=== PATIENT | female | born 1985 | race African-American/Black ===

== ENCOUNTER 2016-10-14 17:12 | Emergency (ER) | payer MEDICAID ==
[2016-10-18 18:08] LABS: AEROBE ID Final report (())
== END 2016-10-14 20:27 | disposition home or self-care (01) ==
LOC: D.ER 17:12
PROVIDERS: Emergency Medicine
DX: J02.9 Acute pharyngitis, unspecified (principal); F17.200 Nicotine dependence, unspecified, uncomplicated

== ENCOUNTER 2017-03-03 14:22 | Emergency (ER) | payer MEDICAID ==
[2017-03-03 16:03] LABS: HEMOGLOBIN 15.3 g/dL (12-16); MCH 30.6 pg (26.0-34.0); MCHC 33.3 g/dL (31.0-37.0); MEAN PLATELET VOLUME 10.8 fL (7.4-10.4); PLATELET COUNT 279 10x3/uL (130-400); RDW 14.6 % (11.5-14.5); WBC 21.4 10x3/uL (4.8-10.8)
[2017-03-03 16:14] LABS: INR 1.02 (0.85-1.17); PROTIME 13.3 SECONDS (11.6-15.0)
[2017-03-03 16:20] LABS: ALBUMIN 3.8 g/dL (3.4-5.0); ALKALINE PHOSPHATASE 73 U/L (46-116); ALT (SGPT) 22 U/L (10-68); BILIRUBIN - TOTAL 0.52 mg/dL (0.2-1.3); CALC OSMOLALITY 270 mosm/kg (275-300); CARBON DIOXIDE 26.6 mmol/L (21.0-32.0); CHLORIDE - SERUM 99 mmol/L (98-107); CREATININE - SERUM 0.9 mg/dL (0.6-1.3); GLUCOSE 97 mg/dL (74-106); POTASSIUM - SERUM 3.9 mmol/L (3.5-5.1); PROTEIN - SERUM 7.9 g/dL (6.4-8.2); SODIUM 136 mmol/L (136-145); UREA NITROGEN 9 mg/dL (7-18); eGFR NON AFRICAN AMERICAN 77 mL/min (90-120)
[2017-03-03 16:27] LABS: BASOPHILS 1 % (0-2); EOSINOPHILS 4 % (0-7); LYMPHOCYTES 12 % (15-50); MONOCYTES 1 % (2-11); NEUTROPHILS 80 % (40-80); PLATELET ESTIMATE NORMAL
== END 2017-03-03 18:24 | disposition home or self-care (01) ==
LOC: D.ER 14:22
PROVIDERS: Nurse Practitioner Family
DX: N60.02 Solitary cyst of left breast (principal)

== ENCOUNTER 2017-04-18 10:36 | Emergency (ER) | payer MEDICAID | END 2017-04-18 12:09 | disposition home or self-care (01) | LOC: D.ER 10:36 | DX: N61.0 Mastitis without abscess (principal); F17.200 Nicotine dependence, unspecified, uncomplicated ==

== ENCOUNTER 2017-10-18 00:06 | Emergency (ER) | payer MEDICAID ==
[2017-10-18 01:01] LABS: BASOPHILS 0.2 % (0-2); EOSINOPHILS 0.3 % (0-7); HEMATOCRIT 44.3 % (36.0-48.0); HEMOGLOBIN 14.9 g/dL (12-16); IMMATURE GRANULOCYTES 0.9 % (0-5); LYMPHOCYTES 11.6 % (15-50); MCH 30.9 pg (26.0-34.0); MCHC 33.6 g/dL (31.0-37.0); MCV 91.9 fL (80.0-100.0); MEAN PLATELET VOLUME 11.3 fL (7.4-10.4); MONOCYTES 6.6 % (2-11); NEUTROPHILS 80.4 % (40-80); PLATELET COUNT 312 10x3/uL (130-400); RBC 4.82 10x6/uL (4.00-5.40); WBC 19.1 10x3/uL (4.8-10.8)
[2017-10-18 01:02] LABS: HCG URINE NEGATIVE (NEGATIVE)
[2017-10-18 01:08] LABS: ANION GAP 17.4 mmol/L (8-16); BILIRUBIN - TOTAL 0.1 mg/dL (0.2-1.3); CALCIUM 8.9 mg/dL (8.5-10.1); CARBON DIOXIDE 23.4 mmol/L (21.0-32.0); POTASSIUM - SERUM 3.8 mmol/L (3.5-5.1); PROTEIN - SERUM 7.9 g/dL (6.4-8.2)
[2017-10-18 01:11] LABS: APPEARANCE CLEAR (CLEAR); BILIRUBIN NEGATIVE (NEGATIVE); COLOR YELLOW (YELLOW); GLUCOSE NEGATIVE (NEGATIVE); KETONE NEGATIVE (NEGATIVE); NITRITE NEGATIVE (NEGATIVE); PROTEIN 3+ mg/dL (NEGATIVE); SPECIFIC GRAVITY 1.025 (1.005-1.020); UROBILINOGEN NORMAL (NORMAL)
[2017-10-18 01:13] LABS: BACTERIA FEW /hpf (NONE SEEN); EPITHELIAL CELLS 0-5 /hpf (0-5); RED CELLS - URINE 0-5 /hpf (0-5); WHITE CELLS - URINE 0-5 /hpf (0-5)
== END 2017-10-18 02:15 | disposition home or self-care (01) ==
LOC: D.ER 00:06
PROVIDERS: Nurse Practitioner Family
DX: T14.8XXA Other injury of unspecified body region, initial encounter (principal); Y04.2XXA Assault by strike against or bumped into by another person, initial encounter; Y93.89 Activity, other specified; Y92.89 Other specified places as the place of occurrence of the external cause; F17.200 Nicotine dependence, unspecified, uncomplicated

== ENCOUNTER 2018-09-16 12:31 | Emergency (ER) | payer MEDICAID ==
[~2018-09-16] VITALS: Ht 170.2 cm; Wt 89.5 kg
[2018-09-16 13:00] VITALS: Ht 170.2 cm; Wt 89.5 kg
[2018-09-16] MEDS ORDERED: IBUPROFEN800 MG PO (13:50)
[2018-09-16] MEDS ORDERED: KEFLEX500 MG PO (13:50)
[2018-09-16] MEDS ORDERED: SULFAMETHOXAZOL1 TA3 PO (13:50)
[2018-09-16] MEDS ORDERED: ACETAMINOPHEN500 M1 PO (13:50)
[2018-09-16 14:38] VITALS: BP 121/69
== END 2018-09-16 14:38 | disposition home or self-care (01) ==
LOC: D.ER 12:31
DX: N61.0 Mastitis without abscess (principal)